=== PATIENT | female | born 1935 | race African-American/Black ===

== ENCOUNTER → 2019-10-07 | Outpatient (CLI) | payer MEDICARE, OTHER ==
[~2019-10-07] MED LIST: ALBUTEROL0.83 MG/ML IH; ATROVENT INHALE14 GM IH; CALCIUM 600 PLU1 TAB PO; CATAPRES0.2 MG PO; CITANEST PLAIN1.8 ML; CLARITIN 1010 MG/TAB PO; EMERGEN-C 1,01000 MG PO; HYGROTON 2525 MG/TAB PO; LASIX 20MG TABL20 MG PO; LEVAQUIN 5500 MG/TA1 PO; LIDODERM 5% PATC1 EA TP; LOPRESSOR100 MG PO; MUCINEX D1 TER PO; MULTI VITAMINS1 TAB PO; NEURONTIN300 MG/CAP PO; PHARMASSURE GA500 MG PO; PREDNISONE10 MG PO; TUSSICAPS 8 MG-1 CER PO; ULTRAM 50MG TAB50 MG PO; VITAMIN D 400400 IU PO; ZESTRIL30 MG PO
== END ==
LOC: COL.RAD 11:58
DX: E04.2 Nontoxic multinodular goiter (principal)
CPT/HCPCS: A9516

== ENCOUNTER 2020-09-04 16:46 | Inpatient (IN) | payer MEDICARE, OTHER ==
[2020-09-04] VITALS (130 sets, daily range): BP systolic 171–183; BP diastolic 75–133; PULSE 68–70; TEMP 98; O2SAT 87–99
[~2020-09-04] VITALS: Ht 160 cm; Wt 94.0 kg
[2020-09-04 17:26] LABS: BASO % 0.4 % (0.0-2.0); EOS # 0.6 (0.0-0.7); EOS % 5.4 % (0-4.0); GRAN # 7.3 (1.4-6.5); GRAN % 67.4 % (42.2-75.2); LYMPH # 2.3 (1.2-3.4); LYMPH % 21.5 % (20.0-51.0); MEAN CELL VOLUME 94 fl (80.0-100.0); MEAN CORPUSCULAR HGB CONC 31 g/dl (33.0-37.0); MEAN PLATELET VOLUME 9.4 fl (7.4-10.4); MONO # 0.5 (0.1-0.6); PLATELET COUNT 203 K/mm3 (130-400); RED BLOOD COUNT 3.04 M/mm3 (4.10-5.30); REDCELL DISTRIBUTION WIDTH-CV 14.8 % (11.5-14.5)
[2020-09-04 17:28] LABS: HEMATOCRIT 28.5 % (37.0-47.0); HEMOGLOBIN 8.7 g/dl (12.5-16.0); MEAN CORPUSCULAR HEMOGLOBIN 29 pg (27.0-31.0)
[2020-09-04 17:31] LABS: INR 1.1 (0.8-3.0); PROTHROMBIN TIME 11.9 SECONDS (9.7-12.8)
[2020-09-04 17:38] LABS: ALBUMIN 4.2 gm/dL (3.5-5.0); BILIRUBIN,TOTAL 0.5 mg/dL (0.0-1.0); C-REACTIVE PROTEIN 0.9 mg/dL (0.0-0.9); CALCIUM 9.1 mg/dL (8.4-10.2); CREATININE, serum 2.99 (0.52-1.25); POTASSIUM 5.3 mmol/L (3.4-5.0); TOTAL PROTEIN 8.2 gm/dL (6.4-8.2)
[2020-09-04 17:47] LABS: TROPONIN-I 0.017 ng/mL (0.000-0.035)
[2020-09-04] MEDS ORDERED: PROTONIX20 MG PO (17:47)
[2020-09-04] MEDS ORDERED: ASPIRIN 81M81 MG/TA2 PO (17:50)
[2020-09-04] MEDS ORDERED: NORVASC 10MG10 MG PO (17:53)
[2020-09-04] MEDS ORDERED: DIGITEK0.125 MG PO (18:00)
[2020-09-04 18:32] LABS: COLLECTION METHOD CLEAN CATCH
[2020-09-04 18:49] LABS: AMORPHOUS CRYSTAL Present /uL; MUCOUS Present /lpf; PH 7 (5-8); URINE APPEARANCE Cloudy; URINE BACTERIA Moderate /hpf; URINE BILIRUBIN Negative (NEGATIVE); URINE BLOOD 1+ (NEGATIVE); URINE COLOR Yellow; URINE GLUCOSE Negative (NEGATIVE); URINE KETONE Negative (NEGATIVE); URINE LEUKOCYTE ESTERASE 2+ (NEGATIVE); URINE NITRATE Negative (NEGATIVE); URINE PROTEIN(semi-quant) 2+ (NEGATIVE); URINE RBC 20-50 /hpf; URINE UROBILINOGEN Negative (NEGATIVE)
[2020-09-04] MEDS ORDERED: TOPROL XL 25MG25 MG PO (20:16)
[2020-09-04] MEDS ORDERED: LANOXIN 0.120.125 MG PO (20:16)
[2020-09-04] MEDS ORDERED: TOPROL XL 50MG50 MG PO (20:17)
[2020-09-04] MEDS ORDERED: PLAVIX 75MG TAB75 MG PO (20:18)
[2020-09-04] MEDS ORDERED: COLACE 100100 MG/CAP PO (20:19)
[2020-09-04] MEDS ORDERED: IPRATROPIUM BROM3 M1 IH (20:20)
[2020-09-04 20:32] LABS: PHOSPHOROUS 4.4 mg/dL (2.5-4.5)
[2020-09-04] MEDS ORDERED: LANTUS SOLOS100 U/ML SQ ×2 (20:37)
[2020-09-04 21:03] LABS: THYROID STIMULATING HORMONE 2.71 uIU/mL (0.465-4.680)
[2020-09-04] MEDS ORDERED: ADMELOG SO100 UNIT/1 SQ (21:28)
--- NOTE | 2020-09-04 21:58 | NUR ---
Patient arrived to the unit via stretcher. Alert and oriented; non-verbal per family member. Patient alble to shake head yes or no to questions and follow commands appropriately. Transfered from ER bed to ICU bed with stand by assist via walker. Attached to all monitors. Son at bedside to assist with admission. Call light left within reach. Will continue to monitor.
[2020-09-04 23:48] LABS: CALCIUM 8.4 mg/dL (8.4-10.2); CREATININE, serum 3.02 (0.52-1.25); POTASSIUM 5.1 mmol/L (3.4-5.0)
--- NOTE | 2020-09-04 23:56 | NUR ---
Leah notified of patient's total urine output of 90mL since bruce insertion at approximately 1900. Awaiting further orders. Will continue to monitor.
[2020-09-05] VITALS (896 sets, daily range): BP systolic 11–188; BP diastolic 50–108; PULSE 54–82; TEMP 97.6–99; O2SAT 44–100
[2020-09-05 00:01] LABS: TROPONIN-I 6 HR POST INITIAL 0.016 ng/mL (0.000-0.034)
[2020-09-05 02:47] LABS: BASO % 0.5 % (0.0-2.0); EOS # 0.4 (0.0-0.7); EOS % 4.8 % (0-4.0); GRAN # 5.7 (1.4-6.5); LYMPH # 1.7 (1.2-3.4); LYMPH % 20.1 % (20.0-51.0); MEAN CELL VOLUME 94 fl (80.0-100.0); MEAN CORPUSCULAR HGB CONC 31 g/dl (33.0-37.0); MONO # 0.6 (0.1-0.6); MONO % 7.4 % (1.7-9.3); PLATELET COUNT 143 K/mm3 (130-400); RED BLOOD COUNT 2.39 M/mm3 (4.10-5.30); REDCELL DISTRIBUTION WIDTH-CV 14.8 % (11.5-14.5)
[2020-09-05 02:48] LABS: HEMATOCRIT 22.5 % (37.0-47.0); MEAN CORPUSCULAR HEMOGLOBIN 29 pg (27.0-31.0)
[2020-09-05 02:49] LABS: HEMOGLOBIN 6.9 g/dl (12.5-16.0)
[2020-09-05 02:52] LABS: CALCIUM 8.3 mg/dL (8.4-10.2); CHOLESTEROL RISK RATIO 2.6; CREATININE, serum 2.9 (0.52-1.25)
[2020-09-05 03:03] LABS: TROPONIN-I 0.016 ng/mL (0.000-0.035)
[2020-09-05 03:26] LABS: HEMATOCRIT 22.1 % (37.0-47.0); HEMOGLOBIN 6.8 g/dl (12.5-16.0)
--- NOTE | 2020-09-05 07:15 | NUR ---
NITRO GTT RUNNING AT 60MCH/MIN ON START OF SHIFT.
[2020-09-05 08:32] LABS: HEMATOCRIT 25.5 % (37.0-47.0); HEMOGLOBIN 7.8 g/dl (12.5-16.0)
--- NOTE | 2020-09-05 08:37 | NUR ---
CONSULT CALLED TO JESSICA PATTERSON WITH NEPHROLOGY.
--- NOTE | 2020-09-05 12:23 | NUR ---
Patient unable to answer questions, outside of yes and no. Patient's DPOA is son Ghassan . Patient resides with son and in same home in [facility]. Son is primary animal care worker. Son reports that he is DPOA but we do not have a copy of the form on file. Plan: To return home with additional nursing care services to additional support 4 x a week and/or private pay care. Assessment: SW spoke with son Ghassan over the phone about patients care. Son reports that they reside in [place] and they need additional support in the home as he is taking care of both mother and father. Son indicated that he is wanting to keep mom at home as long as possible as that is her wish. Patient's PCP is Dr. Vallecillo. RX is obtained from [facility] on [address]. Son reports that he has attempted to obtain supports through and often gets the run around. Son reports that patient has a walker, oxygen at 2 and 1/2 liters but believes that it needs to be adjusted. Son indicated that he would like to have Speech, PT/OT and someone to check the patient's O2 levels to be sure that she is getting the amount of oxygen needed. Son reports that mother has a walker that she does not use often, and a cane. Son reports the client also has a nebulizer. Son indicated that they are recieving 3x a week, bathing assistance for mother from a company called [employer]. SW could not verify company. Action: SW educated son on services and home health care supports. Will start on obtaining services for patient and contacting home health services. Will continue to work with family for safe DC plan.
--- NOTE | 2020-09-05 12:44 | NUR ---
START TO WEAN DOWN EVEN WITH BP IN THE 140'S PER .
--- NOTE | 2020-09-05 14:26 | NUR ---
Hospitalist clarification received for Nitro gtt range. SBP <160 and DBP <100.
--- NOTE | 2020-09-05 15:43 | NUR ---
[facility] CALLED FOR MEDICAL RECORDS BUT NOT OPEN UNTIL MONDAY. SON CALLED AND STATES PTS PCP IS . OFFICE NOT OPEN AT THIS TIME. WILL NOTIFY HOSPITALIST.
[2020-09-05 16:37] LABS: HEMATOCRIT 24.8 % (37.0-47.0); HEMOGLOBIN 7.7 g/dl (12.5-16.0)
--- NOTE | 2020-09-05 19:45 | NUR ---
Patient assessment completed at this time, please see documentation for details. Patient resting in bed, call light within reach. Will continue to monitor.
[2020-09-05 21:22] LABS: URINE PROTEIN:CREAT RATIO 7.73 (0.00-0.14)
[2020-09-06] VITALS (647 sets, daily range): BP systolic 147–177; BP diastolic 66–96; PULSE 51–69; TEMP 98–98.9; O2SAT 78–100
[2020-09-06 05:43] LABS: CALCIUM 8.5 mg/dL (8.4-10.2); CREATININE, serum 3.03 (0.52-1.25); POTASSIUM 5.1 mmol/L (3.4-5.0)
[2020-09-06 07:26] LABS: BASO % 0.2 % (0.0-2.0); EOS # 0.6 (0.0-0.7); EOS % 5.8 % (0-4.0); GRAN % 70.1 % (42.2-75.2); HEMATOCRIT 25.4 % (37.0-47.0); HEMOGLOBIN 7.8 g/dl (12.5-16.0); LYMPH # 1.5 (1.2-3.4); LYMPH % 14.7 % (20.0-51.0); MEAN CELL VOLUME 94 fl (80.0-100.0); MEAN CORPUSCULAR HEMOGLOBIN 29 pg (27.0-31.0); MEAN CORPUSCULAR HGB CONC 31 g/dl (33.0-37.0); MEAN PLATELET VOLUME 10.4 fl (7.4-10.4); MONO # 0.9 (0.1-0.6); PLATELET COUNT 147 K/mm3 (130-400); RED BLOOD COUNT 2.69 M/mm3 (4.10-5.30); REDCELL DISTRIBUTION WIDTH-CV 15.2 % (11.5-14.5)
[2020-09-06 15:42] LABS: IRON,SERUM 71 ug/dL (35-150)
[2020-09-06 15:51] LABS: TOTAL IRON BINDING CAPACITY 202 ug/dL (265-497)
--- NOTE | 2020-09-06 20:30 | NUR ---
PATIENT IS ALERT COMMUNICATES WITH HANDS AND FACIAL EXPRESSION, DENIES PAIN AT THIS TIME HOWEVER COMPLAINS OF B/P CUFF TO TIGHT, REAPPROXIMATED CUFF, PATIENT GIVEN WATER FOR PILLS AND PATIENT IS AWARE OF FLUID RESTRICTION, I GAVE CONFIDENCE IN THE FACT OF RECORDING, AND LIMITING FLUIDS.
[2020-09-07] VITALS (511 sets, daily range): BP systolic 144–199; BP diastolic 64–103; PULSE 49–74; TEMP 97.5–98.1; O2SAT 61–100
[2020-09-07 05:27] LABS: CALCIUM 8.3 mg/dL (8.4-10.2); CREATININE, serum 3.55 (0.52-1.25)
--- NOTE | 2020-09-07 09:32 | NUR ---
Documentation Billing Clerk attended clinical rounds with the team. A palliative care consult was ordered. CASI contacted Shae Frederick, Palliative Care Nurse to inform her of the consult. CASI contacted the patient's son Ghassan # [phone] to inquire about DPOA-HC paperwork. Ghassan to visit the patient this day at around noon, he will bring the paperwork at that time. Shae and this SW to meet with Ghassan and the patient at that time. CASI collaborated the above information with the patient's nurse.
[2020-09-07 10:33] LABS: PARTIAL THROMBOPLASTIN TIME 30.9 SECONDS (26.0-37.0)
--- NOTE | 2020-09-07 12:07 | NUR ---
First visit from the insurance agency manager. No needs right now.
--- NOTE | 2020-09-07 13:53 | NUR ---
Mems Device Scientist and Shae Frederick, Palliative care nurse met with the patient and patient's son, Ghassan. He provided the DPOA-HC form. Ghassan is the agent, the first alternative is Jose Sanchez and second alternative is Arsenio Spencer. The patient's son, Ghassan states the patient was at [facility] in for three weeks and discharged in May 21. The plan is to return home and continue with [facility] and continued family suppport.
--- NOTE | 2020-09-07 14:08 | NUR ---
Palliative care nurse met with patient and her son along with Ann Marie, director social. Pt speaks limited on word responses but seems to follow along with the conversation and nods appropriately. She is cared for at home with her two sons and assistance from [facility] for bathing and medication set up. Son is feeling that she would benefit from having a female to help her with her personal hygiene each day--might have prevented this infection. Son Ghassan is aware of her CHF, her renal disease, as this seems to run in the family, and her breathing issues. The family is wanting to keep Mom at home and to focus on quality of life. The son does realize that the problems that she is dealing with now are big problems and that they tend to compromise the other problems. She has had a relative on dialysis who is now . Son is aware that some of these health issues are not getting better. He would greatly like her to remain at home and comfortable but would like therapy to work with her to help build up her strength. Issues like dialysis he would like to talk with other family members about if such a decision has to be made. He did provided DP- paperwork. We will continue to follow along and see how her stay progresses. Wants to continue current care with hope for discharge home soon.
--- NOTE | 2020-09-07 15:05 | NUR ---
Manager China spoke with CASI Nixon at [facility] who advised they have been providing in home services to patient since she discharged from [facility] in [place]. Hussain advised they would be willing to continue services with patient although Hussain shared that patient would probably benefit from placement in a facility but prefers to be in her home. Hussain reports patient has other adults living in the home with her but that patient's son, Ghassan is the most reliable support for patient. CASI will continue to follow.
--- NOTE | 2020-09-07 19:45 | NUR ---
Called regarding patients blood pressures being SBP in the 200's/90's. YESENIA Lynn was first notified but due to patients kidney function she wanted me to consult . He gave some verbal orders over the phone to change and add some medications to help manage her BP.
--- NOTE | 2020-09-07 20:07 | NUR ---
YESENIA Lynn, was called and notified that was called and I told her what the new orders were by him. I also notified her of the patients HepXa being critically high at 1.17. We will hold hep gtt for 2 hrs.
[2020-09-07 21:44] LABS: HEPATITIS B SURFACE ANTIGEN Negative (Negative); HEPATITIS C VIRUS ANTIBODY Negative (Negative)
[2020-09-07 22:34] LABS: PARTIAL THROMBOPLASTIN TIME 56.4 SECONDS (26.0-37.0)
[2020-09-07 23:25] LABS: COMPLEMENT-C3 120 mg/dL (83-193)
[2020-09-07 23:26] LABS: COMPLEMENT-C4 32 mg/dL (15-57)
[2020-09-08] VITALS (834 sets, daily range): BP systolic 126–184; BP diastolic 55–86; PULSE 60–83; TEMP 97.1–98.5; O2SAT 66–100
[2020-09-08 05:43] LABS: PARTIAL THROMBOPLASTIN TIME 100.2 SECONDS (26.0-37.0)
[2020-09-08 08:12] LABS: ALBUMIN 3.5 gm/dL (3.5-5.0); BILIRUBIN,TOTAL 0.4 mg/dL (0.0-1.0); CALCIUM 8.6 mg/dL (8.4-10.2); CREATININE, serum 3.26 (0.52-1.25); TOTAL PROTEIN 6.9 gm/dL (6.4-8.2)
[2020-09-08 09:14] LABS: KAPPA FREE LIGHT CHAIN-SERUM 128.07 mg/L (()); KAPPA LAMBDA RATIO 1.32 ratio (()); LAMDA FREE LIGHT CHAIN SERUM 97.25 mg/L (())
--- NOTE | 2020-09-08 10:24 | NUR ---
Fish Cutting Machine Operator attended clinical rounds with the team. SW faxed updates to [facility] with [facility]. SW contacted [facility] regarding update.
[2020-09-08 15:12] LABS: ANA SCREEN with REFLEX Negative (Negative)
[2020-09-08 17:36] LABS: C-ANCA 85 U/mL (0-99)
[2020-09-09] VITALS (1072 sets, daily range): BP systolic 112–172; BP diastolic 49–86; PULSE 54–79; TEMP 96.6–98.6; O2SAT 57–100
[2020-09-09 06:52] LABS: MEAN CELL VOLUME 93 fl (80.0-100.0); MEAN CORPUSCULAR HGB CONC 31 g/dl (33.0-37.0); MEAN PLATELET VOLUME 9.9 fl (7.4-10.4); PLATELET COUNT 167 K/mm3 (130-400); RED BLOOD COUNT 2.48 M/mm3 (4.10-5.30); REDCELL DISTRIBUTION WIDTH-CV 14.6 % (11.5-14.5)
[2020-09-09 07:01] LABS: HEMOGLOBIN 7.2 g/dl (12.5-16.0); MEAN CORPUSCULAR HEMOGLOBIN 29 pg (27.0-31.0)
[2020-09-09 07:23] LABS: CALCIUM 8.4 mg/dL (8.4-10.2); CREATININE, serum 3.22 (0.52-1.25); MAGNESIUM 1.7 mg/dL (1.6-2.3); PHOSPHOROUS 5.2 mg/dL (2.5-4.5); POTASSIUM 5.1 mmol/L (3.4-5.0)
[2020-09-09 07:45] LABS: BASO % 0.4 % (0.0-2.0); EOS % 7.1 % (0-4.0); GRAN % 61.7 % (42.2-75.2); LYMPH % 21.8 % (20.0-51.0); MONO % 8.7 % (1.7-9.3)
[2020-09-09 07:46] LABS: EOS # 0.7 (0.0-0.7); GRAN # 5.6 (1.4-6.5); MONO # 0.8 (0.1-0.6)
--- NOTE | 2020-09-09 09:55 | NUR ---
Cook Sauce attended clinical rounds with the team. SW contacted the patient's son, Ghassan and he was on speaker phone. Hospitalist is recommending LTACH. Ghassan was agreeable to sending referrals. Referrals sent to [facility] and to [facility].
--- NOTE | 2020-09-09 10:31 | NUR ---
Advised per Dr Hernandez that pt's family has elected to send her to [facility] for ongoing care. [facility] referral is being made by social sciences research scientist.
--- NOTE | 2020-09-09 12:38 | NUR ---
Patient was found by RN, Malka, to be seizing at this time and called me immediately. Can not be sure when the seizure started exactly but from the time an RN was in the room and when she stopped it was about 1-2 minutes. Once I was called I immediately called to notify him and I gave 2mg IV ativan. During seizure patient went bradycardic to the 40's and O2 sats were in the 60's. She was placed on 15L oxymask. I was able to wean her down once we trasnferred her from the chair to her bed. Her blood pressure remained stable in the 150's and her BS was 146. We took her to CT to image her head. was consulted, and we started q2hr neuro checks. When in CT patient became agitated and I called and he ordered me to give 2mg IV ativan again and we were then able to get her CT done. Once back in the room patient remains drowsy and unable to follow commands.
--- NOTE | 2020-09-09 13:08 | NUR ---
Wu with [facility] reports they can accept the patient. Brimmer Blocker had discharge ready. The team and the patient's DPOA-HC/son, Ghassan on board with discharge plan. [facility] was to provide transport. school crossing guard supervisor contacted this SW regarding the patient. The patient had a seizure and per Hospitalist the plan to discharge to [facility] could not continue this day. CASI contacted Wu with [facility] and Loly with [facility] to provided the above update. [facility] contacted this SW. They declined patient, she does not meet criteria. CASI collaborated the above information with the patient's nurse.
[2020-09-10] VITALS (415 sets, daily range): BP systolic 104–160; BP diastolic 45–80; PULSE 59–64; TEMP 97.6–98.2; O2SAT 82–100
--- NOTE | 2020-09-10 00:20 | NUR ---
Patient's SBPs began to rapidly decrease following scheduled administration of evening oral anti-hypertensives. Up to this point, patient had remained on nitro at 30 mcg/min or 9mL/hr. SBPs prior to oral med administration ranged anywhere between 150-190s. Within approximately 90 minutes of administration, SBPs were 120s, occasionally low 100s. Began decreasing nitro infusion at 2330, with being set to standby by 0020. Milagros PATTERSON, notified. Will continue to monitor.
--- NOTE | 2020-09-10 04:14 | NUR ---
Patient has been very drowsy and lethargic throughout NOC. She sleeps between disturbances but is easy to arrouse. She does, however, require repeated prompting and stimulation before fully waking with comprehension. Once completely awake, patient is A&Ox3 and follows all verbal commands. Will continue to monitor.
--- NOTE | 2020-09-10 04:30 | NUR ---
Patient's SBPs have been 130-140s consistently since approximately 0100. Patient is easily arrousable but requires a lot of stimulation to fully awaken. The patient is very drowsy. This RN does not feel like the patient could safely take PO medications at this time. Notified YESENIA Estes, of pressures and patient's mental status. Received orders to hold scheduled 0300 dose of hydralazine. To continue to monitor patient's BPs and alertness to assess for PO intake capability.
[2020-09-10 06:17] LABS: CALCIUM 8.7 mg/dL (8.4-10.2); CREATININE, serum 3.47 (0.52-1.25); POTASSIUM 5.2 mmol/L (3.4-5.0)
[2020-09-10 06:27] LABS: PROTHROMBIN TIME 11.3 SECONDS (9.7-12.8)
--- NOTE | 2020-09-10 07:15 | NUR ---
RECEIVED REPORT FROM JOHN TREVINO. PT SLEEPING ON 2L VIA NC. FC PATENT AND DRAINING TO GRAVITY. VSS.
--- NOTE | 2020-09-10 10:13 | NUR ---
Pt is awaiting MRI and other testing to clarify situation and safety of transfer to [facility]. Pt remains non verbal.
--- NOTE | 2020-09-10 11:42 | NUR ---
PT TO MRI AT 1108 AND BACK AT 1142. PT ASSISTED BACK TO ICU BED 1. PT REMAINS ON 2L NC. FC PATENT AND DRAINING TO GRAVITY. PT PLACED BACK ON CONTINUOUS DRAFTSPERSON. CALL LIGHT WITHIN REACH. DR VALENTINO NOTIFIED OF MRI ONLY PARTIALLY COMPELTED BECAUSE PT HAD A HARD TIME SITTING STILL. PHYSICIAN STATES WILL TAKE A LOOK AT EXAM.
--- NOTE | 2020-09-10 13:33 | NUR ---
The patient to discharge today, 09/10 to room 139 at [facility] in [place]. The patient had an MRI and Hospitalist cleared her to be transferred. [facility] to transport the patient at 1330. The team and the patient's DPOA-HC/son, Ghassan were in agreeance. Dr. Reddy will be accepting. Color Finisher faxed discharge orders. SW informed [facility]. There are no additional needs at this time.
--- NOTE | 2020-09-10 13:50 | NUR ---
PT TRASNFERRED TO CARE OF EMS WITH [facility]. SON WILTON AT BEDSIDE DURIGN TRANSFER. JOSE CRUZ AND JIMI SENT WITH PT.
--- NOTE | 2020-09-10 14:07 | NUR ---
REPORT CALLED TO JOHN GUTIERREZ AT [facility] IN . RN AWARE OF SON'S REQUEST TO BE CALELD FOR AN UPDATE UPON PT'S ARRIVAL TO THEIR FACILITY.
[2020-09-11 12:39] LABS: BETA GLOBULINS (PEP) 0.8 g/dL (0.7-1.2)
[2020-09-12 07:31] LABS: URINE HOURS (UPEP) 24 h (())
[2020-09-12 09:29] LABS: URIN CONCENTRATION 24HR (UPEP) 161 mg/dL (()); URINE PROTEIN 24HR (UPEP) 1972 mg/24 h (<229)
== END 2020-09-10 13:50 | DRG 291 ==
LOC: COL.ER 16:46 → ICU 18:36
PROVIDERS: Emergency Medicine; Internal Medicine; Internal Medicine Nephrology; Internal Medicine Pulmonary Disease; Nurse Practitioner Family; ADMIT Student in an Organized Health Care Education/Training Program
DX: I13.0 Hypertensive heart and chronic kidney disease with heart failure and stage 1 through stage 4 chronic kidney disease, or unspecified chronic kidney disease (principal); I50.33 Acute on chronic diastolic (congestive) heart failure; J96.11 Chronic respiratory failure with hypoxia; I69.354 Hemiplegia and hemiparesis following cerebral infarction affecting left non-dominant side; N17.9 Acute kidney failure, unspecified; N39.0 Urinary tract infection, site not specified; G72.81 Critical illness myopathy; I16.1 Hypertensive emergency; I82.402 Acute embolism and thrombosis of unspecified deep veins of left lower extremity; N18.9 Chronic kidney disease, unspecified; E11.22 Type 2 diabetes mellitus with diabetic chronic kidney disease; I48.91 Unspecified atrial fibrillation; R56.9 Unspecified convulsions; E87.5 Hyperkalemia; I27.20 Pulmonary hypertension, unspecified; D64.3 Other sideroblastic anemias; E11.21 Type 2 diabetes mellitus with diabetic nephropathy; Z99.81 Dependence on supplemental oxygen; Z85.3 Personal history of malignant neoplasm of breast; Z79.4 Long term (current) use of insulin
CPT/HCPCS: 99223-AI; 99233-AI; 99239; J0696; J1644; J1815; J1940; J1953; J2060; J3475; P9016